=== PATIENT | female | born 1945 | race Caucasian/White ===

== ENCOUNTER → 2017-04-30 | Outpatient (CLI) | payer MEDICARE | END | disposition home or self-care (01) | LOC: GMAJ 15:47 | PROVIDERS: ATTEND Family Medicine | DX: M25.462 Effusion, left knee (principal) ==

== ENCOUNTER → 2017-05-01 | Outpatient (CLI) | payer MEDICARE ==
--- NOTE | 2017-05-01 13:14 | MRI ---
EXAM DESCRIPTION: Knee,Left CLINICAL HISTORY: OTHER TEAR OF UNSPECIFIED MENISCUS COMPARISON: None Available. TECHNIQUE: MRI of the left knee is performed according to our usual protocol with multiplanar multi sequence imaging. FINDINGS: Moderate left knee joint effusion and moderate complex multiseptated popliteal cyst. Assessment of the articular surfaces of the knee joint shows extensive mixed grade 3/4 chondrosis involving all three compartments of the joint. There is a large grade 4 defect in the central aspect of the lateral facet of the patella measuring about 12 mm in diameter. Multifocal smaller areas of full-thickness cartilage loss noted in all three compartments. Significant marginal osteophyte formation. Extensive degenerative tears of medial and lateral menisci both of which appear highly macerated. There is fragmentation of the posterior horn of the lateral meniscus. Cruciate and collateral ligaments are intact. IMPRESSION: Severe degenerative changes of all three compartments of the knee joint with medial and lateral meniscus tears Electronically signed by: Carlos A Velazco MD 05/01/2017 1:13 PM CDT
== END ==
LOC: MRI 07:00
PROVIDERS: ATTEND Family Medicine
DX: S83.204A Other tear of unspecified meniscus, current injury, left knee, initial encounter (principal)

== ENCOUNTER → 2017-05-16 | Outpatient (CLI) | payer MEDICARE ==
--- NOTE | 2017-05-16 10:24 | RAD ---
EXAM DESCRIPTION: Knee,Left Complete CLINICAL HISTORY: 71 years, Female, PAIN IN LEFT KNEE COMPARISON: FINDINGS: Four views were obtained without definite fracture or dislocation. Moderate narrowing medially with spurring. Slight narrowing laterally. Moderate narrowing patellofemoral joint space with spurring. Fluid in the suprapatellar bursa. Small amount of arterial calcification. IMPRESSION: Moderate degenerative changes typically patellofemoral joint space. Probable small joint effusion. No fracture or dislocation Electronically signed by: Christiano Lopez MD 05/16/2017 10:23 AM CDT
--- NOTE | 2017-05-16 10:26 | RAD ---
EXAM DESCRIPTION: Pelvis CLINICAL HISTORY: 71 years, Female, PAIN IN LEFT HIP COMPARISON: FINDINGS: Frontal view the pelvis shows intact pelvic ring. Degenerative narrowing both hips, more on the right. Mild sacroiliac degenerative change, more on the right. Some arterial calcification in the pelvis. IMPRESSION: Mild degenerative change. No fracture or dislocation. Electronically signed by: Christiano Lopez MD 05/16/2017 10:24 AM CDT
== END | disposition home or self-care (01) ==
LOC: RAD 07:26
PROVIDERS: ATTEND Orthopaedic Surgery
DX: M25.562 Pain in left knee (principal); M25.552 Pain in left hip

== ENCOUNTER → 2017-05-30 | Outpatient (CLI) | payer MEDICARE | END | disposition home or self-care (01) | LOC: RESP 10:32 | PROVIDERS: ATTEND Orthopaedic Surgery | DX: Z01.818 Encounter for other preprocedural examination (principal) ==

== ENCOUNTER 2017-06-11 05:47 | Inpatient (IN) | payer MEDICARE ==
--- NOTE | 2017-06-10 10:10 | HP ---
CHIEF COMPLAINT: Left knee pain. HISTORY OF PRESENT ILLNESS: Ms. Larson is a 71-year-old female with a history of knee pain. She has had conservative measures , however, has failed to gain relief. She continues to have pain that causes to have to use an assistive device for ambulation. She denies any trauma related to the onset of that. Because of her ongoing pain and failure of conservative measures, she has requested operative intervention. After discussing the risks, benefits and alternatives to that, the patient has given informed consent. PAST SURGICAL HISTORY: 1. Rotator cuff repair. 2. Herniorrhaphy. 3. Cholecystectomy. 4. Cardiac bypass. 5. Bilateral knee arthroscopy. MEDICATIONS: 1. Lisinopril. 2. Coreg. 3. Diclofenac. 4. Nexium. 5. Levothyroxine. 6. Crestor. 7. Estradiol. ALLERGIES: NONSTEROIDAL ANTI-INFLAMMATORY DRUGS, NAPROSYN, DAYPRO. CODE STATUS: Full code. IMMUNIZATIONS: Up to date. SOCIAL HISTORY: The patient does not drink, smoke or use any illicit drugs. FAMILY HISTORY: None pertinent to today's complaint. REVIEW OF SYSTEMS: Negative except as indicated in the History of Present Illness. PHYSICAL EXAMINATION: VITAL SIGNS: Blood pressure 102/67. Pulse 93. Height 5'4". Weight 157. MENTAL STATUS: The patient is awake, alert, and is able to give a good history and participate in the physical. The patient is oriented to person, place and time. SKIN: Normal tone and turgor. HEENT: Normocephalic, atraumatic. Pupils equal, round and reactive. Mucosal membranes are moist. NECK: Normal range of motion. No thyromegaly, no lymphadenopathy. CHEST: Normal respiratory excursion. CARDIAC: Regular rate and rhythm. No murmurs, rubs or gallops. MUSCULOSKELETAL: Bilateral upper extremities show full active range of motion without pain. She has intact sensation throughout. They are warm and well perfused. She has 5/5 strength. The right lower extremity shows no significant pain with range of motion of either the hip or the knee. Sensation is intact throughout. It is warm and well perfused. The left lower extremity has severe pain with patellar mobilization. She has intact sensation. The hip has no significant pain with range of motion. There is no varus/valgus or anterior/posterior laxity. IMAGING: X-rays show advanced arthritis. ASSESSMENT: 1. Osteoarthritis. PLAN: The plan at this point is for total knee arthroplasty. We have discussed the risks, benefits, and alternatives to that and the patient has given informed consent. [facility][id number] [facility]
[2017-06-11] MEDS ORDERED: LACTATED RINGERS 1,000 ML ONE ×2 (06:03→13:42)
[2017-06-11] MEDS ORDERED: VANCOMYCIN HCL INJ 1,000 MG VIAL IVPB ONE ×3 (06:03→19:28)
[2017-06-11] MEDS ORDERED: ceFAZolin SODIUM 1 GM VIAL ONE ×3 (06:03→07:21)
[2017-06-11] MEDS ORDERED: TRANEXAMIC ACID 1,000 MG/10 ML VIAL ONE ×2 (06:03→06:05)
[2017-06-11] MEDS ORDERED: SODIUM CHL 0.9% 50ML MIN-BAG+ 0 ML IVPB ONE (06:03)
[2017-06-11] MEDS ORDERED: SODIUM CHLORIDE 0.9% 100ML 100 ML IVPB ONE (06:04)
[2017-06-11] MEDS ORDERED: SODIUM CHLORIDE 0.9% 250ML 250 ML ONE ×2 (06:04→19:27)
[2017-06-11] MEDS ORDERED: SODIUM CHL 0.9% 100ML MINI-BAG 100 ML IVPB ONE (06:08)
[2017-06-11] MEDS ORDERED: TEMAZEPAM 15 MG CAP PO PRN (06:55)
[2017-06-11] MEDS ORDERED: PROMETHAZINE HCL INJ 12.5 MG in SODIUM CHLORIDE 0.9% 50ML 50 ML IVPB PRN (06:55)
[2017-06-11] MEDS ORDERED: ACETAMINOPHEN 325 MG TAB PO PRN (06:55)
[2017-06-11] MEDS ORDERED: SODIUM CHLORIDE 0.9% (FLUSH) 10 ML SYG IV PRN (06:55)
[2017-06-11] MEDS ORDERED: ALUMINUM & MAGNESIUM HYDROXIDE 30 ML UD PO PRN (06:55)
[2017-06-11] MEDS ORDERED: TRANEXAMIC ACID INJ 1,000 MG in SODIUM CHLORIDE 0.9% 100ML 100 ML IVPB ONE (06:55)
[2017-06-11] MEDS ORDERED: BENZOCAINE-MENTH LOZ (CEPACOL) 1 EA LOZ MT PRN (06:55)
[2017-06-11] MEDS ORDERED: MORPHINE SULFATE INJ 10 MG/ML VIAL IM PRN (06:55)
[2017-06-11] MEDS ORDERED: ACETAMINOPHEN 500 MG TAB PO PRN (06:55)
[2017-06-11] MEDS ORDERED: NALOXONE HCL INJ 0.4 MG/ML VIAL IV PRN (06:55)
[2017-06-11] MEDS ORDERED: ZOLPIDEM TARTRATE 5 MG TAB PO PRN (06:55)
[2017-06-11] MEDS ORDERED: PROMETHAZINE HCL INJ 25 MG in SODIUM CHLORIDE 0.9% 50ML 50 ML IVPB PRN (06:55)
[2017-06-11] MEDS ORDERED: BISACODYL SUPPOSITORY 10 MG PR PRN (06:55)
[2017-06-11] MEDS ORDERED: ONDANSETRON INJ 4 MG/2 ML VIAL IV PRN (06:55)
[2017-06-11] MEDS ORDERED: MAGNESIUM HYDROXIDE 30 ML UD PO PRN (06:55)
[2017-06-11] MEDS ORDERED: MORPHINE SULFATE INJ 10 MG/ML VIAL IV PRN (06:55)
[2017-06-11] MEDS ORDERED: MORPHINE PCA 1 MG/ML 100ML 1 BAG in PREMIX BAG 1 BAG IVPB SCH (07:00)
[2017-06-11] MEDS ORDERED: BUPIVACAINE 0.25% W/EPI 50 ML VIAL INJ ONE (07:21)
[2017-06-11] MEDS ORDERED: MAGNESIUM OXIDE 400 MG TAB PO SCH (09:00)
[2017-06-11] MEDS ORDERED: TRANEXAMIC ACID 1,000 MG/10 ML VIAL IV ONE (09:02)
[2017-06-11] MEDS ORDERED: MORPHINE SULFATE *EPIDURAL* 0.5 MG/ML VIAL ONE (09:03)
[2017-06-11] MEDS ORDERED: MIDAZOLAM INJ 2 MG/2 ML VIAL ONE (09:04)
[2017-06-11] MEDS ORDERED: fentaNYL CITRATE INJ 50 MCG/ML AMP ONE (09:04)
[2017-06-11] MEDS ORDERED: BUPIVACAINE 0.25% INJ 30 ML VIAL INJ ONE (10:26)
[2017-06-11] MEDS ORDERED: ACETAMINOPHEN IV 1000MG 100 ML ONE (10:38)
[2017-06-11] MEDS: ceFAZolin SODIUM 1 GM VIAL ONE ×2 (11:04→11:55)
[2017-06-11] MEDS: VANCOMYCIN HCL INJ 1,000 MG VIAL IVPB ONE ×2 (11:04→11:55)
[2017-06-11] MEDS ORDERED: MORPHINE PCA 1 MG/ML 100 ML BAG IVPB ONE (11:24)
[2017-06-11] MEDS ORDERED: raNITIdine HCL INJ 25 MG/ML VIAL IV ONE (12:00)
[2017-06-11] MEDS ORDERED: PROPOFOL 200 MG/20 ML VIAL IV ONE (12:00)
[2017-06-11] MEDS ORDERED: METOCLOPRAMIDE HCL INJ 10 MG/2 ML VIAL IV ONE (12:00)
[2017-06-11] MEDS ORDERED: DEXAMETHASONE INJ 10 MG/ML VIAL IV ONE (12:00)
[2017-06-11] MEDS ORDERED: LIDOCAINE 1% 10 ML VIAL INJ ONE (12:00)
[2017-06-11] MEDS ORDERED: ePHEDrine SULF 50 MG/ML IV ONE (12:00)
[2017-06-11] MEDS: IV SET AND CAP CHANGE INJ INJ SCH (14:00)
[2017-06-11] MEDS ORDERED: diphenhydrAMINE HCL 50 MG/ML VIAL IM PRN (14:35)
[2017-06-11] MEDS: diphenhydrAMINE HCL 50 MG/ML VIAL IV PRN (14:44)
[2017-06-11] MEDS ORDERED: CEFAZOLIN SODIUM 2 GRAMS IV 50 ML IVPB ONE ×2 (17:08→19:28)
[2017-06-11] MEDS ORDERED: MAGNESIUM OXIDE 400 MG TAB ONE (17:09)
[2017-06-11] MEDS: DEX 5% W/NACL 0.45% 1000ML 1,000 ML IVS PRN (17:12)
[2017-06-11] MEDS: CEFAZOLIN SODIUM 2 GRAMS IV 2 GM in PREMIX BAG 1 BAG IVPB SCH (17:13)
--- NOTE | 2017-06-11 19:24 | CONS ---
DATE OF CONSULTATION: 06/11/17 SUPERVISING PHYSICIAN: Kb Chaves M.D. CHIEF COMPLAINT: Left knee pain. HISTORY OF PRESENT ILLNESS: This is a 71 year-old female patient with a significant history of left knee pain. She has tried conservative measures and has failed to gain relief. She has continued to have pain that causes her to use assistive devices for ambulation. Because of her ongoing pain and failure of conservative measures, she had requested Dr. James Hurtado, orthopedic surgeon , for surgical intervention with a left total knee arthroplasty. I am seeing her postoperatively. Postoperatively, she is very sleepy but her daughter is at the bedside and she answers all of her medical history questions. PAST MEDICAL HISTORY: 1. Seasonal allergies. 2. Gastroesophageal reflux disease. 3. Hyperlipidemia. 4. Hypertriglyceridemia. 5. Hypertension. 6. Hypothyroidism. 7. Osteoarthritis. 8. Peptic ulcer disease. 9. Coronary artery disease with coronary artery bypass graft in 2013. 10. Diverticulosis. PAST SURGICAL HISTORY: 1. Hernia repair times 2. 2. Arthroscopy to both knees. 3. Coronary artery bypass graft of 5 vessels in 2013. 4. Cholecystectomy. 5. Hysterectomy. 6. Rotator cuff repair to the right shoulder. OUTPATIENT MEDICATIONS: Per the EMR and awaiting verification. ALLERGIES: DAYPRO, NAPROSYN AND MOST NSAIDs EXCEPT CLOFENAC, PLAQUENIL, METHOTREXATE AND PRAVACHOL. SOCIAL HISTORY: She is . She has 3 kids. She still works as an penal officer. She has a past history of cigarette smoking but quit in 2007. She denies any ETOH or illicit drug use. REVIEW OF SYSTEMS: Negative except for History of Present Illness. PHYSICAL EXAMINATION: VITAL SIGNS: She is afebrile, heart rate 73, blood pressure 133/84, respiratory rate 18, O2 sat is 92% on 2 liters nasal cannula. GENERAL: This is a 71 year-old female patient who is lying in her hospital bed. She is very lethargic but she is in no acute distress. HEENT: Normocephalic and atraumatic. Pupils are equal and reactive. Oropharynx is clear. NECK: Supple without mass. CHEST: Clear to auscultation bilaterally. There is equal rise and fall of the chest with inspiration and expiration. HEART: Regular rate and rhythm. ABDOMEN: Soft, nondistended, non-tender. Bowel sounds are positive. EXTREMITIES: No cyanosis or clubbing. Her bilateral pedal pulses are palpable. She has an Iceman in place to her left knee. NEUROLOGIC: She is lethargic. She does open her eyes and mumbles some words, but continues to be very sleepy postoperatively. LABORATORY: All labs and films have been reviewed via the EMR. IMPRESSION: 1. Osteoarthritis of the left knee status post total knee arthroplasty per Dr. James Hurtado, orthopedic surgeon, postoperative day zero. 2. Gastroesophageal reflux disease. 3. Hyperlipidemia. 4. Hypertension. 5. Hypothyroidism. 6. Coronary artery disease. PLAN: We will continue present supportive care. I have restarted her home medications. Orthopedic issues will be per Dr. Hurtado. She will start her physical therapy for strengthening and conditioning tomorrow. I have encouraged good pulmonary hygiene. Otherwise we will continue to monitor the patient closely and followup as needed. Dr. Chaves is the collaborating physician available for consultation. [id number]
[2017-06-11] MEDS ORDERED: hydroCHLOROthiazide 12.5 MG CAP ONE (19:26)
[2017-06-11] MEDS ORDERED: ENOXAPARIN SODIUM 30 MG/0.3 ML SYG SUBCU ONE (19:27)
[2017-06-11] MEDS ORDERED: CARVEDILOL 3.125 MG TAB ONE (19:27)
[2017-06-11] MEDS ORDERED: ESTRADIOL TAB 1 MG PO ONE (19:27)
[2017-06-11] MEDS ORDERED: DOCUSATE CALCIUM 240 MG CAP ONE (19:27)
[2017-06-11] MEDS ORDERED: ATORVASTATIN 10 MG TAB ONE (19:27)
[2017-06-11] MEDS ORDERED: LISINOPRIL 10 MG TAB ONE (19:27)
[2017-06-11] MEDS: VANCOMYCIN HCL INJ 1,000 MG in SODIUM CHLORIDE 0.9% 250ML 250 ML IVPB SCH (19:54)
[2017-06-11] MEDS: diphenhydrAMINE HCL 25 MG CAP PO PRN (19:55)
[2017-06-11] MEDS: CARVEDILOL 3.125 MG TAB PO SCH (20:02)
[2017-06-11] MEDS: ATORVASTATIN 10 MG TAB PO SCH (20:02)
[2017-06-11] MEDS: ESTRADIOL TAB 1 MG PO SCH (20:02)
[2017-06-11] MEDS: DOCUSATE CALCIUM 240 MG CAP PO SCH (20:02)
[2017-06-11] MEDS: traMADol HCL 50 MG TAB PO PRN (23:26)
[2017-06-12] MEDS: ENOXAPARIN SODIUM 30 MG/0.3 ML SYG SUBCU SCH ×2 (00:02→12:58)
[2017-06-12] MEDS: CEFAZOLIN SODIUM 2 GRAMS IV 2 GM in PREMIX BAG 1 BAG IVPB SCH ×2 (02:03→11:01)
[2017-06-12] MEDS: CYCLOBENZAPRINE HCL 10 MG TAB PO PRN ×2 (04:22→20:24)
[2017-06-12] MEDS: LISINOPRIL 10 MG TAB PO SCH (06:04)
[2017-06-12] MEDS: LEVOTHYROXINE SODIUM 0.1 MG TAB PO SCH (06:04)
[2017-06-12] MEDS: hydroCHLOROthiazide 12.5 MG CAP PO SCH (06:04)
[2017-06-12] MEDS: diphenhydrAMINE HCL 25 MG CAP PO PRN (06:37)
[2017-06-12] MEDS ORDERED: NON-FORMULARY MEDICATION 1 EA MIS (Lisinopril & Hydrochlorothiazi [Lisinopril/Hctz 20-12.5 PO SCH (07:00)
[2017-06-12] MEDS ORDERED: SODIUM CHLORIDE 0.9% 250ML 250 ML ONE (08:02)
[2017-06-12] MEDS ORDERED: VANCOMYCIN HCL INJ 1,000 MG VIAL IVPB ONE (08:03)
[2017-06-12] MEDS: VANCOMYCIN HCL INJ 1,000 MG in SODIUM CHLORIDE 0.9% 250ML 250 ML IVPB SCH (08:30)
[2017-06-12] MEDS: FLUTICASONE PROP 0.05% NASAL 16 GM BTTL BNAS SCH (08:31)
[2017-06-12] MEDS: CARVEDILOL 3.125 MG TAB PO SCH ×2 (08:31→20:35)
[2017-06-12] MEDS: MAGNESIUM OXIDE 400 MG TAB PO SCH (08:31)
--- NOTE | 2017-06-12 08:46 | OP ---
DATE OF PROCEDURE: 06/11/17 PREOPERATIVE DIAGNOSIS: 1. Osteoarthritis of the knee. POSTOPERATIVE DIAGNOSIS: 1. Osteoarthritis of the knee. PROCEDURE: 1. Total knee arthroplasty. SURGEON: James Hurtado MD. BENEFITS CONSULTANT: Fede Jon CST, [facility]. ANESTHESIA: General. COMPLICATIONS: None. FINDINGS: Advanced arthritis of the knee. INDICATION: Ms. Larson has a long history of knee pain. She has been treated and although she had not ever had positive markers for rheumatoid arthritis, she had also been attempted to be treated for that. She has failed conservative measures inclusive of injections, anti-inflammatories and use of an assistive device for ambulation. Because of the ongoing pain, she has requested operative intervention. After discussing the risks, benefits and alternatives to that, the patient has given informed consent for total knee arthroplasty. PROCEDURE: The patient was brought to the Operating Room and placed in supine position. General anesthesia was induced and the patient's leg was sterilely prepped and draped. Following prepping and draping, the distal femur was exposed and using an intramedullary guide, the distal femoral cut was made. The appropriate sized cutting block was measured, pinned into place, and the anterior, posterior, and chamfer cuts were made. The ACL was transected and the tibia was subluxed. Both the medial and lateral menisci were removed. An intramedullary guide was used to make the proximal tibial cut. The appropriate sized base plate was placed and a trial polyethylene was placed. The trial femur was placed, the knee was reduced, and the knee was taken through a range of motion. The knee was stable in anterior, posterior, varus and valgus stress. The patella tracked anatomically without evidence of subluxation or dislocation. After trialing, the trial components were removed and the bony surfaces were thoroughly irrigated with saline. Following irrigation, the surfaces were dried and the final components were cemented into place. The excess cement was removed and the remaining cement was allowed to cure. The knee was again taken through a range of motion to confirm stability. The wound was then irrigated with saline and closure was performed using PDS to approximate the arthrotomy followed by closure of the subcutaneous tissues with a combination of running and interrupted Monocryl sutures. Sterile dressing was placed. The patient was awoken from anesthesia and taken to Recovery. POSTOPERATIVE INSTRUCTIONS: The patient will be weight-bearing as tolerated on postoperative day 1. COMPONENTS: [place] knee, size 4 femur, size 4 tibia, 11 mm insert. [facility][id number]
[2017-06-12] MEDS ORDERED: CEFAZOLIN SODIUM 2 GRAMS IV 50 ML IVPB ONE (10:58)
--- NOTE | 2017-06-12 11:05 | PN ---
SUPERVISING PHYSICIAN: Kb Chaves MD DATE: 06/12/17 SUBJECTIVE: The patient is sitting on the side of her bed. She is about to start her physical therapy this morning. She was very sleepy last night but reported she had a good night and other than some itching, she has no complaints of shortness of breath, nausea or vomiting, diarrhea, constipation. OBJECTIVE: VITAL SIGNS: She is afebrile. Heart rate is 80, blood pressure 119/75, respiratory rate 18. 02 saturation is 94% on two liters nasal cannula. RESPIRATORY: Clear to auscultation bilaterally. CARDIAC: Regular rate and rhythm. ABDOMEN: Soft, nondistended, non-tender. Bowel sounds are positive. EXTREMITIES: She has an Iceman in place to her left knee. Her bilateral pedal pulses are palpable at +2. NEUROLOGICAL: Awake, alert, and oriented x3. LABORATORY: Her hemoglobin is 12.2, hematocrit 36.7 All other labs and films have been reviewed via the EMR. ASSESSMENT: 1. Osteoarthritis of the left knee status post total knee arthroplasty per Dr. James Hurtado, orthopedic surgeon, postoperative day #1. . 2. Gastroesophageal reflux disease. 3. Hyperlipidemia. 4. Hypertension. 5. Hypothyroidism. 6. Coronary artery disease. PLAN: We will continue present supportive care. Her strengthening and conditioning will be continued through physical therapy. Orthopedic issues will be per Dr. Hurtado. I have encouraged good pulmonary hygiene. At this point, we anticipate that after discharge, per Dr. Hurtado, we will probably need about 10 days of Swing Bed but that will be reevaluated in the next day or two. Otherwise, we will continue to monitor the patient closely and followup as needed. Dr. Chaves is the collaborating physician available for comparison. #[id number] [facility]
--- NOTE | 2017-06-12 14:16 | RAD ---
EXAM DESCRIPTION: Knee,Left 2 or More Views CLINICAL HISTORY: 71 yearsFemale, TKA COMPARISON: 05/16/2017 IMPRESSION: There are operative changes of a left total knee arthroplasty. Components appear in excellent alignment, with no complicating features. There is postoperative gas in the soft tissues. Electronically signed by: Con Dawn MD 06/12/2017 2:15 PM CDT
[2017-06-12] MEDS: DEX 5% W/NACL 0.45% 1000ML 1,000 ML IVS PRN (20:24)
[2017-06-12] MEDS: traMADol HCL 50 MG TAB PO PRN (20:24)
[2017-06-12] MEDS: DOCUSATE CALCIUM 240 MG CAP PO SCH (20:35)
[2017-06-12] MEDS: ATORVASTATIN 10 MG TAB PO SCH (20:35)
[2017-06-12] MEDS: ESTRADIOL TAB 1 MG PO SCH (20:35)
[2017-06-13] MEDS: ENOXAPARIN SODIUM 30 MG/0.3 ML SYG SUBCU SCH ×2 (00:30→13:19)
[2017-06-13] MEDS: traMADol HCL 50 MG TAB PO PRN (06:22)
[2017-06-13] MEDS: CYCLOBENZAPRINE HCL 10 MG TAB PO PRN (06:22)
[2017-06-13] MEDS: LEVOTHYROXINE SODIUM 0.1 MG TAB PO SCH (06:22)
[2017-06-13] MEDS: hydroCHLOROthiazide 12.5 MG CAP PO SCH (06:46)
[2017-06-13] MEDS: LISINOPRIL 10 MG TAB PO SCH (06:46)
--- NOTE | 2017-06-13 07:57 | PN ---
DATE: 06/12/17 SUBJECTIVE: Ms. Larson is doing well. She has minimal pain and is up to a seated position with the knee bent. OBJECTIVE: Afebrile. Vital signs stable. Dressing is clean, dry and intact. ASSESSMENT: Status post total knee arthroplasty. PLAN: She will continue with her weight-bearing as tolerated activities as well as her CPM. [facility][id number]
--- NOTE | 2017-06-13 08:03 | PN ---
DATE: 06/13/17 SUBJECTIVE: Ms. Larson is doing well right now. She has no significant pain. She was up walking yesterday. OBJECTIVE: Afebrile. Vital signs stable. Wound is clean. There are no signs or symptoms of infection. ASSESSMENT: Status post total knee arthroplasty. PLAN: She will continue her weight-bearing status. We will progress her as tolerated with her CPM as well. [facility][id number] [facility]
[2017-06-13] MEDS: CARVEDILOL 3.125 MG TAB PO SCH ×2 (08:40→20:30)
[2017-06-13] MEDS: MAGNESIUM OXIDE 400 MG TAB PO SCH (08:40)
[2017-06-13] MEDS: HYDROcodone 5MG/APAP 325MG 1 EA TAB PO PRN ×4 (08:40→20:30)
[2017-06-13] MEDS: SODIUM CHLORIDE 0.9% (FLUSH) 10 ML SYG IV SCH ×2 (08:40→20:30)
[2017-06-13] MEDS: FLUTICASONE PROP 0.05% NASAL 16 GM BTTL BNAS SCH (08:40)
--- NOTE | 2017-06-13 15:00 | PN ---
SUPERVISING PHYSICIAN: Kb Chaves MD DATE: 06/13/17 SUBJECTIVE: The patient is sitting in bed just having finished at the bedside commode. She notes she feels like she needs to have a bowel movement, but has not yet had any success. She denies any abdominal cramping, nausea or vomiting. OBJECTIVE: VITAL SIGNS: She remains afebrile with T-max of 98.5. Pulse 81. Blood pressure 127/77. Respiratory rate 17. Saturation 95% on room air. I&Os show positive balance 1161 with 3286 in, 2125 out. CHEST: Lungs clear to auscultation bilaterally. HEART: Regular rate and rhythm. ABDOMEN: Obese, but soft and nontender. Positive bowel sounds. EXTREMITIES: No cyanosis, clubbing or edema. Left knee has a dressing in place which is clean and dry. There are no signs of infection. No erythema, no swelling. Distal pulses strong. Capillary refill brisk. NEUROLOGIC: Alert and oriented times three. LABORATORY: Postoperative evaluation on 06/12 was hemoglobin 12.2, hematocrit 36.7. ASSESSMENT: 1. Osteoarthritis of the left knee status post total knee arthroplasty per Dr. James Hurtado, orthopedic surgeon, postoperative day #2. 2. Gastroesophageal reflux disease. 3. Hyperlipidemia. 4. Hypertension. 5. Hypothyroidism. 6. Coronary artery disease. PLAN: We will continue to follow the patient has she progresses through physical therapy efforts. We will encourage good pulmonary hygiene. We will anticipate discharge in the morning to Swing Bed for 10 days as the patient lives alone and has no assistance. Until discharge, we will continue to monitor the patient closely and treat appropriately. #[id number] [facility]
[2017-06-13] MEDS: ESTRADIOL TAB 1 MG PO SCH (20:30)
[2017-06-13] MEDS: ATORVASTATIN 10 MG TAB PO SCH (20:30)
[2017-06-13] MEDS: DOCUSATE CALCIUM 240 MG CAP PO SCH (20:30)
[2017-06-13] MEDS: diphenhydrAMINE HCL 50 MG/ML VIAL IV PRN (20:45)
[2017-06-14] MEDS: ENOXAPARIN SODIUM 30 MG/0.3 ML SYG SUBCU SCH (01:01)
[2017-06-14] MEDS: HYDROcodone 5MG/APAP 325MG 1 EA TAB PO PRN ×3 (04:05→11:10)
[2017-06-14] MEDS: hydroCHLOROthiazide 12.5 MG CAP PO SCH (06:37)
[2017-06-14] MEDS: LISINOPRIL 10 MG TAB PO SCH (06:37)
[2017-06-14] MEDS: IV SET AND CAP CHANGE INJ INJ SCH (06:37)
[2017-06-14] MEDS: LEVOTHYROXINE SODIUM 0.1 MG TAB PO SCH (06:37)
[2017-06-14] MEDS: MAGNESIUM OXIDE 400 MG TAB PO SCH (08:17)
[2017-06-14] MEDS: CARVEDILOL 3.125 MG TAB PO SCH (08:17)
[2017-06-14] MEDS: SODIUM CHLORIDE 0.9% (FLUSH) 10 ML SYG IV SCH (08:20)
[2017-06-14] MEDS: FLUTICASONE PROP 0.05% NASAL 16 GM BTTL BNAS SCH (08:25)
[2017-06-14] MEDS ORDERED: INFLUENZA VIRUS VACC (ADULT) 0.5 ML SYG IM ONE ×2 (09:27→11:05)
[2017-06-14 10:22] VITALS: BP 135/83; TEMP 97.2
[2017-06-14] MEDS: CYCLOBENZAPRINE HCL 10 MG TAB PO PRN (11:10)
[2017-06-14 14:23] VITALS: O2SAT 95
[2017-06-14] MEDS ORDERED: MAGNESIUM HYDROXIDE 30 ML UD PO ONE (21:00)
[2017-06-14] MEDS ORDERED: BISACODYL SUPPOSITORY 10 MG PR ONE (21:00)
--- NOTE | 2017-06-15 12:14 | DS ---
SUPERVISING PHYSICIAN: Kb Chaves MD DISCHARGE DIAGNOSIS: 1. Osteoarthritis of the left knee status post total left knee arthroplasty performed by Dr. James Hurtado, orthopedic surgeon, postoperative day 2 admitted to Swing Bed for continued physical therapy efforts. 2. Gastroesophageal reflux disease. 3. Hyperlipidemia. 4. Hypertension. 5. Hypothyroidism. 6. Coronary artery disease. HISTORY OF PRESENT ILLNESS: Ms. Larson is a 71 year-old female patient with a significant history of left knee pain. She has tried multiple efforts at conservative treatment measures and failed to gain any relief. She has continued to have pain that causes her to utilize assistive devices for ambulation. Because of her ongoing pain and failure of conservative measures, she requested Dr. James Hurtado, orthopedic surgeon, to perform a left total knee arthroplasty. The patient was seen and admitted postoperative and followed through her acute care stay. The patient progressed well through her physical therapy efforts but does live alone and is in need of continued ongoing physical therapy. Therefore.she is being admitted Swing Bed. LABORATORY: Postoperative hemoglobin and hematocrit of 12.2 and 36.7, PROCEDURES: Total knee arthroplasty, left knee, performed by Dr. James Hurtado. Please see Dr. Hurtado's notes for full details. HOSPITAL COURSE: Ms. Larson was admitted on 06/11/17 for an elective procedure for a left total knee arthroplasty performed by Dr. James Hurtado. The patient had no complications at surgery. She was seen immediately in the postoperative state and followed through while in acute care. She progressed fairly well through her physical therapy efforts but is in need of additional days of physical therapy, however, she does live alone and will benefit from additional stays at Swing Bed for safety and improved physical therapy outcomes. PLAN: The patient is discharged from Acute Care on 06/14/17 and admitted to Swing Bed on 06/14/17 for ongoing physical therapy efforts. She was to continue with anticoagulation therapy with Xarelto for a total of 8 days as per protocol. All other medications are resumed as previously for hospitalization. Diet was regular as tolerated. Activities as per physical therapy. CONDITION ON DISCHARGE: Stable and improved. #[id number] [facility]
== END 2017-06-14 12:50 | disposition swing bed (61) | DRG 470 ==
LOC: AMB 05:47 → MS 14:00
PROVIDERS: ADMIT Orthopaedic Surgery; ATTEND Nurse Practitioner Family
PROC: 0SRD0J9 Replacement of Left Knee Joint with Synthetic Substitute, Cemented, Open Approach (ICD-10-PCS; principal; 2017-06-11 10:11)
DX: M17.12 Unilateral primary osteoarthritis, left knee (principal); K21.9 Gastro-esophageal reflux disease without esophagitis; I10 Essential (primary) hypertension; E03.9 Hypothyroidism, unspecified; I25.10 Atherosclerotic heart disease of native coronary artery without angina pectoris; J30.2 Other seasonal allergic rhinitis; E78.2 Mixed hyperlipidemia; Z88.6 Allergy status to analgesic agent; Z95.1 Presence of aortocoronary bypass graft; Z87.891 Personal history of nicotine dependence; Z79.899 Other long term (current) drug therapy

== ENCOUNTER 2017-06-14 13:13 | Inpatient (IN) | payer MEDICARE ==
[2017-06-14] MEDS ORDERED: SODIUM PHOS/BIPHOS ENEMA ADULT 133 ML BTTL PR PRN (13:14)
[2017-06-14] MEDS ORDERED: ACETAMINOPHEN 500 MG TAB PO PRN (13:14)
--- NOTE | 2017-06-14 13:14 | HP ---
SUPERVISING PHYSICIAN: Kb Chaves M.D. REASON FOR SWING BED ADMISSION: Continued physical therapy status post left knee total arthroplasty. HISTORY OF PRESENT ILLNESS: Ms. Larson is a 71 year-old female patient with a significant history of left knee pain. She has attempted multiple conservative treatment measures in the outpatient setting but failed to gain any significant relief. She has had continued pain that has been causing her to utilize assistive devices for ambulation. Because of her ongoing pain and failure of conservative measures, she requested Dr. James Hurtado , orthopedic surgeon, for surgical intervention with a left total knee arthroplasty. The patient had surgery on 06/11/17 and was followed postoperatively up until discharge. The patient has a history of living by herself and it was felt that Swing Bed admission was warranted to ensure the patient had adequate time to increase strength and she has no assistance at home , to ensure that she was safe once discharged. The patient was discharged from Acute Care and admitted to Swing Bed for ongoing physical therapy. PAST MEDICAL HISTORY: 1. Seasonal allergies. 2. Gastroesophageal reflux disease. 3. Hyperlipidemia. 4. Hypertriglyceridemia. 5. Hypertension. 6. Hypothyroidism. 7. Osteoarthritis. 8. Peptic ulcer disease. 9. Coronary artery disease with coronary artery bypass graft in 2013. 10. Diverticulosis. PAST SURGICAL HISTORY: 1. Recent left knee total arthroplasty as noted above. 2. Hernia repair times 2. 3. Arthroscopy of both knees. 4. Coronary artery bypass graft of 5 vessels in 2013. 5. Cholecystectomy. 6. Hysterectomy. 7. Rotator cuff repair of the right shoulder. OUTPATIENT MEDICATIONS: 1. Coreg 3.125 mg b.i.d. 2. Lipitor 10 mg at bedtime. 3. Flexeril 10 mg every 8 hours as needed at bedtime. 4. Co Q-10 100 mg every day. 5. [place] 5/325 one every 4 hours as needed for pain. 6. Nasal spray 50 mcg daily both nostrils. 7. Estrace 0.5 mg at bedtime. 8. Diclofenac sodium direct release 50 mg twice daily. 9. Lisinopril Hydrochlorothiazide 20/12.5 mg 1/2 tablet twice daily. 10. Krill oil 1 capsule at bedtime. 11. Lovenox 100 mcg daily at 7:00 in the morning. 12. Xarelto 10 mg p.o. daily for a total of 8 days. ALLERGIES: HYDROXYCHLOROQUINE, METHOTREXATE, NAPROSYN, NSAIDs, PRAVASTATIN. FAMILY HISTORY: Unremarkable. SOCIAL HISTORY: The patient is . She still works as an booking police officer. She has a history of smoking cigarettes but quit in 2007. She denies any illicit drug or alcohol usage. REVIEW OF SYSTEMS: Negative except as per History of Present Illness. PHYSICAL EXAMINATION: VITAL SIGNS: Temperature 97.1, pulse 73, blood pressure 124/80, respirations 20 , satting 94% on room air. Admission weight is 90.7 kg. GENERAL: The patient is resting comfortably. Appears to be in no acute distress. She has good pain control. She remains afebrile. She is alert and oriented times three. HEENT: Tympanic membranes are clear bilaterally. Oropharynx is pink and moist without any lesions. NECK: Supple, non-tender with full range of motion. CHEST: Lungs were clear to auscultation bilaterally without an rhonchi, wheezing or rales. CARDIOVASCULAR: Regular rate and rhythm without appreciable murmurs, gallops, or rubs. ABDOMEN: Soft, non-tender. Positive bowel sounds. EXTREMITIES: There is a dressing in place overlying the left knee which is clean and dry. Pulses distally are strong, capillary refill is brisk. NEUROLOGIC: She is alert and oriented times three. LABORATORY: No labs are pending at time of admission. RADIOLOGY: No radiographic studies are pending at time of admission. ASSESSMENT: 1. Osteoarthritis of the left knee status post total left knee arthroplasty performed by Dr. James Hurtado, orthopedic surgeon, on 06/11/17. Postoperative day 3. The patient require ongoing Swing Bed admission for continued physical therapy. 2. Gastroesophageal reflux disease. 3. Hyperlipidemia. 4. Hypertension. 5. Hypothyroidism. 6. Coronary artery disease. PLAN: The patient will be admitted to Swing Bed. Will continue her physical therapy and follow her closely. She will be resumed on her home medications. Will start on DVT prophylaxis as per protocol. Will anticipate length of stay to be at least 3 to 12 days. Until discharge, will continue to monitor and treat appropriately. #[id number] [facility]
--- NOTE | 2017-06-14 13:19 | PCM.CORE ---
Physician DVT/VTE - Prophylaxis Currently: Patient already on anticoagulation therapy - xarelto - Nurse DVT Assessment & Total Each Risk Factor Represents 5 Points: Elective Arthtroplasty Each Risk Factor Represents 2 Points: Age 60-74, Major Surgery >45 minutes DVT Assessment Score: 9 - 5 or more Very High Risk Treatments: Early Ambulation *, Sequential Compression Device
[2017-06-14] MEDS: HYDROcodone 5MG/APAP 325MG 1 EA TAB PO PRN ×2 (14:57→20:19)
[2017-06-14] MEDS ORDERED: ESTRADIOL TAB 1 MG PO ONE (19:29)
[2017-06-14] MEDS ORDERED: LISINOPRIL 10 MG TAB ONE (19:29)
[2017-06-14] MEDS ORDERED: hydroCHLOROthiazide 25 MG TAB ONE (19:30)
[2017-06-14] MEDS: CYCLOBENZAPRINE HCL 10 MG TAB PO PRN (20:19)
[2017-06-14] MEDS: CARVEDILOL 3.125 MG TAB PO SCH (20:41)
[2017-06-14] MEDS: ATORVASTATIN 10 MG TAB PO SCH (20:42)
[2017-06-14] MEDS ORDERED: KRILL OIL PO SCH (21:00)
[2017-06-14] MEDS ORDERED: NON-FORMULARY MEDICATION 1 EA MIS (Lisinopril & Hydrochlorothiazi [Lisinopril/Hctz 20-12.5 PO SCH (21:00)
[2017-06-14] MEDS ORDERED: ESTRADIOL 0.5 MG PO SCH (21:00)
[2017-06-14] MEDS: DICLOFENAC SODIUM 50 MG PO SCH (21:17)
[2017-06-15] MEDS: HYDROcodone 5MG/APAP 325MG 1 EA TAB PO PRN ×6 (01:03→19:59)
[2017-06-15] MEDS: LEVOTHYROXINE SODIUM 0.1 MG TAB PO SCH (06:39)
[2017-06-15] MEDS: COENZYME Q10 100 MG PO SCH (06:39)
[2017-06-15] MEDS: DOCUSATE SODIUM 100 MG CAP PO SCH (09:35)
[2017-06-15] MEDS: CYCLOBENZAPRINE HCL 10 MG TAB PO PRN ×2 (09:35→19:59)
[2017-06-15] MEDS: LISINOPRIL 10 MG TAB PO SCH ×2 (09:35→20:02)
[2017-06-15] MEDS: hydroCHLOROthiazide 12.5 MG CAP PO SCH (09:35)
[2017-06-15] MEDS: FLUTICASONE PROP 0.05% NASAL 16 GM BTTL BNAS SCH (09:36)
[2017-06-15] MEDS: RIVAROXABAN 10 MG TAB PO SCH (09:36)
[2017-06-15] MEDS: CARVEDILOL 3.125 MG TAB PO SCH ×2 (09:36→20:03)
[2017-06-15] MEDS: DICLOFENAC SODIUM 50 MG PO SCH ×2 (09:47→20:03)
--- NOTE | 2017-06-15 12:48 | PN ---
DATE: 06/14/17 SUBJECTIVE: Ms. Larson subjectively is doing well, however, she is having some muscle spasms. OBJECTIVE: She is afebrile. Vital signs are stable. Wound is clean. There are no signs or symptoms of infection. ASSESSMENT: 1. Status post total knee arthroplasty. PLAN: The plan is to continue on with weightbearing as tolerated. We are going to try some Flexeril on her and see if we can get her muscle spasms under control. We have encouraged her to do some stretching to the degree that she can. #[id number] [facility]
--- NOTE | 2017-06-15 12:57 | PN ---
DATE: 06/15/17 SUBJECTIVE: Ms. Larson has improved today and not having the spasms that she was having yesterday at this time. She does state that Tylenol #4 helps better than the Foley when she is having pain. OBJECTIVE: She is afebrile. Vital signs are stable. Wound is clean. There are no signs or symptoms of infection. ASSESSMENT: 1. Status post total knee arthroplasty. PLAN: The plan at this point is for her to continue on with her physical therapy. We are going to change her over to Tylenol #3 as we do not carry Tylenol #4. Will continue the CPM and increase as tolerated. [facility][id number] [facility]
[2017-06-15] MEDS ORDERED: SUCRALFATE 1 GM/10 ML 1 GM UD PO SCH (16:30)
[2017-06-15] MEDS ORDERED: FISH OIL 1,200 MG CAP ONE (19:52)
[2017-06-15] MEDS ORDERED: ESTRADIOL TAB 1 MG PO ONE (19:52)
[2017-06-15] MEDS: FISH OIL 1,200 MG CAP PO SCH (20:02)
[2017-06-15] MEDS: ESTRADIOL TAB 1 MG PO SCH (20:02)
[2017-06-15] MEDS: ATORVASTATIN 10 MG TAB PO SCH (20:03)
[2017-06-16] MEDS: HYDROcodone 5MG/APAP 325MG 1 EA TAB PO PRN ×4 (03:29→19:31)
[2017-06-16] MEDS: COENZYME Q10 100 MG PO SCH (06:09)
[2017-06-16] MEDS: LEVOTHYROXINE SODIUM 0.1 MG TAB PO SCH (06:45)
[2017-06-16] MEDS: DICLOFENAC SODIUM 50 MG PO SCH ×2 (09:16→21:03)
[2017-06-16] MEDS: LISINOPRIL 10 MG TAB PO SCH ×2 (09:17→20:49)
[2017-06-16] MEDS: CARVEDILOL 3.125 MG TAB PO SCH ×2 (09:17→20:50)
[2017-06-16] MEDS: hydroCHLOROthiazide 12.5 MG CAP PO SCH (09:17)
[2017-06-16] MEDS: FLUTICASONE PROP 0.05% NASAL 16 GM BTTL BNAS SCH (09:17)
[2017-06-16] MEDS: RIVAROXABAN 10 MG TAB PO SCH (09:17)
[2017-06-16] MEDS: DOCUSATE SODIUM 100 MG CAP PO SCH (09:17)
[2017-06-16] MEDS: CYCLOBENZAPRINE HCL 10 MG TAB PO PRN (19:31)
[2017-06-16] MEDS: FISH OIL 1,200 MG CAP PO SCH (20:50)
[2017-06-16] MEDS: ESTRADIOL TAB 1 MG PO SCH (20:50)
[2017-06-16] MEDS: MAGNESIUM HYDROXIDE 30 ML UD PO PRN (20:52)
[2017-06-16] MEDS: ATORVASTATIN 10 MG TAB PO SCH (21:28)
[2017-06-17] MEDS: HYDROcodone 5MG/APAP 325MG 1 EA TAB PO PRN ×3 (00:05→08:55)
[2017-06-17] MEDS: CYCLOBENZAPRINE HCL 10 MG TAB PO PRN (03:37)
[2017-06-17] MEDS: LEVOTHYROXINE SODIUM 0.1 MG TAB PO SCH (06:33)
[2017-06-17] MEDS: COENZYME Q10 100 MG PO SCH (06:36)
--- NOTE | 2017-06-17 07:39 | PN ---
DATE: 06/17/17 SUBJECTIVE: Ms. Larson is doing well and has good pain control right now. OBJECTIVE: Afebrile. Vital signs stable. Wound is clean. There are no signs or symptoms of infection. ASSESSMENT: Status post total knee arthroplasty. PLAN: At this point, she will continue with physical therapy. We are going to continue to progress her CPM as tolerated. [facility][id number] [facility]
[2017-06-17] MEDS: hydroCHLOROthiazide 12.5 MG CAP PO SCH (08:46)
[2017-06-17] MEDS: RIVAROXABAN 10 MG TAB PO SCH (08:46)
[2017-06-17] MEDS: CARVEDILOL 3.125 MG TAB PO SCH ×2 (08:46→20:56)
[2017-06-17] MEDS: LISINOPRIL 10 MG TAB PO SCH ×2 (08:46→20:56)
[2017-06-17] MEDS: DOCUSATE SODIUM 100 MG CAP PO SCH (08:46)
[2017-06-17] MEDS: FLUTICASONE PROP 0.05% NASAL 16 GM BTTL BNAS SCH (08:46)
[2017-06-17] MEDS: DICLOFENAC SODIUM 50 MG PO SCH ×2 (08:47→20:57)
[2017-06-17] MEDS: HYDROcodone 10MG/APAP 325MG 1 EA TAB PO PRN ×3 (13:01→20:57)
[2017-06-17] MEDS: TEMAZEPAM 15 MG CAP PO PRN (20:56)
[2017-06-17] MEDS: ATORVASTATIN 10 MG TAB PO SCH (20:56)
[2017-06-17] MEDS: ESTRADIOL TAB 1 MG PO SCH (20:57)
[2017-06-17] MEDS: FISH OIL 1,200 MG CAP PO SCH (20:57)
[2017-06-18] MEDS: CYCLOBENZAPRINE HCL 10 MG TAB PO PRN (06:03)
[2017-06-18] MEDS: HYDROcodone 10MG/APAP 325MG 1 EA TAB PO PRN ×4 (06:03→20:50)
[2017-06-18] MEDS: LEVOTHYROXINE SODIUM 0.1 MG TAB PO SCH (06:32)
[2017-06-18] MEDS: COENZYME Q10 100 MG PO SCH (06:32)
[2017-06-18] MEDS: RIVAROXABAN 10 MG TAB PO SCH (08:52)
[2017-06-18] MEDS: LISINOPRIL 10 MG TAB PO SCH ×2 (08:52→20:49)
[2017-06-18] MEDS: DICLOFENAC SODIUM 50 MG PO SCH (08:52)
[2017-06-18] MEDS: hydroCHLOROthiazide 12.5 MG CAP PO SCH (08:53)
[2017-06-18] MEDS: FLUTICASONE PROP 0.05% NASAL 16 GM BTTL BNAS SCH (08:53)
[2017-06-18] MEDS: CARVEDILOL 3.125 MG TAB PO SCH ×2 (08:53→20:49)
[2017-06-18] MEDS: DOCUSATE SODIUM 100 MG CAP PO SCH (08:53)
[2017-06-18] MEDS: ESTRADIOL TAB 1 MG PO SCH (20:49)
[2017-06-18] MEDS: ATORVASTATIN 10 MG TAB PO SCH (20:49)
[2017-06-18] MEDS: TEMAZEPAM 15 MG CAP PO PRN (20:50)
[2017-06-19] MEDS: CYCLOBENZAPRINE HCL 10 MG TAB PO PRN ×2 (06:01→14:30)
[2017-06-19] MEDS: HYDROcodone 10MG/APAP 325MG 1 EA TAB PO PRN ×3 (06:01→21:26)
[2017-06-19] MEDS: COENZYME Q10 100 MG PO SCH (06:50)
[2017-06-19] MEDS: LEVOTHYROXINE SODIUM 0.1 MG TAB PO SCH (06:50)
--- NOTE | 2017-06-19 08:30 | PN ---
DATE: 06/18/17 SUBJECTIVE: Ms. Larson is doing well and she has no complaints. OBJECTIVE: Wound is clean. There are no signs or symptoms of infection. ASSESSMENT: Status post total knee arthroplasty. PLAN: She will continue with therapy. She will be discharged when she meets all goals. [facility][id number] [facility]
[2017-06-19] MEDS: FLUTICASONE PROP 0.05% NASAL 16 GM BTTL BNAS SCH (08:34)
[2017-06-19] MEDS: hydroCHLOROthiazide 12.5 MG CAP PO SCH (08:35)
[2017-06-19] MEDS: CARVEDILOL 3.125 MG TAB PO SCH ×2 (08:35→21:24)
[2017-06-19] MEDS: RIVAROXABAN 10 MG TAB PO SCH (08:35)
[2017-06-19] MEDS: LISINOPRIL 10 MG TAB PO SCH ×2 (08:35→21:24)
[2017-06-19] MEDS: DOCUSATE SODIUM 100 MG CAP PO SCH (09:41)
[2017-06-19] MEDS: DICLOFENAC SODIUM 50 MG PO SCH ×3 (09:57→21:24)
[2017-06-19] MEDS: FISH OIL 1,200 MG CAP PO SCH ×2 (21:23)
[2017-06-19] MEDS: ESTRADIOL TAB 1 MG PO SCH (21:23)
[2017-06-19] MEDS: ATORVASTATIN 10 MG TAB PO SCH (21:24)
[2017-06-19] MEDS: TEMAZEPAM 15 MG CAP PO PRN (21:26)
[2017-06-20] MEDS: LEVOTHYROXINE SODIUM 0.1 MG TAB PO SCH (06:36)
[2017-06-20] MEDS: COENZYME Q10 100 MG PO SCH (06:36)
[2017-06-20] MEDS: CYCLOBENZAPRINE HCL 10 MG TAB PO PRN (08:20)
[2017-06-20] MEDS: HYDROcodone 10MG/APAP 325MG 1 EA TAB PO PRN ×3 (08:20→20:06)
--- NOTE | 2017-06-20 09:21 | PN ---
DATE: 06/20/17 SUBJECTIVE: Ms. Larson is doing well today and has minimal discomfort. OBJECTIVE: Her wounds are clean. There are no signs or symptoms of infection. ASSESSMENT: Status post total knee arthroplasty. PLAN: At this point, she is slated for discharge in a couple of days. We will continue to perform physical therapy during the remainder of her time here. #[id number] [facility]
[2017-06-20] MEDS: FLUTICASONE PROP 0.05% NASAL 16 GM BTTL BNAS SCH (09:43)
[2017-06-20] MEDS: hydroCHLOROthiazide 12.5 MG CAP PO SCH (09:44)
[2017-06-20] MEDS: RIVAROXABAN 10 MG TAB PO SCH (09:44)
[2017-06-20] MEDS: LISINOPRIL 10 MG TAB PO SCH ×2 (09:44→21:25)
[2017-06-20] MEDS: CARVEDILOL 3.125 MG TAB PO SCH ×2 (09:44→21:25)
[2017-06-20] MEDS: DICLOFENAC SODIUM 50 MG PO SCH ×2 (09:45→21:25)
[2017-06-20] MEDS: DOCUSATE SODIUM 100 MG CAP PO SCH (09:45)
--- NOTE | 2017-06-20 10:36 | PN ---
DATE: 06-19-17 SUBJECTIVE: The patient is lying in bed and seems to be tolerating quite well her continued rehabilitation. Her appetite is good. No shortness of breath and she is anticipating being able to return home to have further outpatient rehabilitation by the first of this weekend. OBJECTIVE: Left knee dressing has been changed and is clean. She has fairly good range of motion and is able to bear weight. Lungs are clear. Heart tones are regular. Abdomen is soft. ASSESSMENT: 1. Postoperative day #8 left total knee arthroplasty performed by Dr. Hurtado. 2. History of chronic osteoarthritis failing outpatient therapy and requiring surgical intervention to assist with symptom control. 3. Hyperlipidemia. 4. Gastroesophageal reflux disease. 5. Hypertension. 7. Hypothyroidism on supplementation. 8. History of coronary artery disease. PLAN: The patient will continue on rehabilitation until the first of this weekend when she will be able to hopefully return when stable and when safe to do so for continued outpatient management. Reevaluation in the morning and discuss with therapist. #[id number] [facility]
[2017-06-20] MEDS: ATORVASTATIN 10 MG TAB PO SCH (21:25)
[2017-06-20] MEDS: FISH OIL 1,200 MG CAP PO SCH (21:25)
[2017-06-20] MEDS: ESTRADIOL TAB 1 MG PO SCH (21:25)
--- NOTE | 2017-06-20 21:28 | PN ---
DATE: 06/20/17 SUBJECTIVE: The patient is sitting up in the chair and is actually active, alert and cooperative. No shortness of breath or nausea. Slight edema evident in the left leg. Pain is significantly improved. OBJECTIVE: Afebrile, pulse 79, blood pressure 124/85, pulse oximetry 95% on room air. The dressing appears to be dry on the left knee and she has remarkably good range of motion. She is able to put weight on it with some pain , but it seems to be improving. Her confidence seems to be good. Heart and lung exams normal. ASSESSMENT: 1. Postoperative day #9 total left knee arthroplasty performed by Dr. Hurtado, orthopedic surgery. 2. Chronic osteoarthritis failing to respond to outpatient therapy and requiring surgical intervention to assist with symptom control. 3. Hyperlipidemia. 4. Gastroesophageal reflux disease. 5. Hypertension. 6. Hypothyroidism on supplementation. 7. History of coronary artery disease. PLAN: The patient will continue with Swing Bed rehabilitation hopefully for the next 2 days and be able to return home if making good progress on Saturday morning this weekend. She will then have continued outpatient management and followup. #[id number] [facility]
[2017-06-21] MEDS: TEMAZEPAM 15 MG CAP PO PRN (00:25)
[2017-06-21] MEDS: CYCLOBENZAPRINE HCL 10 MG TAB PO PRN ×2 (00:25→20:01)
[2017-06-21] MEDS: COENZYME Q10 100 MG PO SCH (06:36)
[2017-06-21] MEDS: LEVOTHYROXINE SODIUM 0.1 MG TAB PO SCH (06:36)
[2017-06-21] MEDS: RIVAROXABAN 10 MG TAB PO SCH (08:42)
[2017-06-21] MEDS: FLUTICASONE PROP 0.05% NASAL 16 GM BTTL BNAS SCH (08:42)
[2017-06-21] MEDS: DOCUSATE SODIUM 100 MG CAP PO SCH (08:42)
[2017-06-21] MEDS: CARVEDILOL 3.125 MG TAB PO SCH ×2 (08:42→20:45)
[2017-06-21] MEDS: LISINOPRIL 10 MG TAB PO SCH ×2 (08:42→20:45)
[2017-06-21] MEDS: HYDROcodone 10MG/APAP 325MG 1 EA TAB PO PRN (08:42)
[2017-06-21] MEDS: hydroCHLOROthiazide 12.5 MG CAP PO SCH (08:42)
[2017-06-21] MEDS: DICLOFENAC SODIUM 50 MG PO SCH ×2 (08:43→20:45)
[2017-06-21] MEDS: MAGNESIUM HYDROXIDE 30 ML UD PO PRN (08:52)
[2017-06-21] MEDS: FISH OIL 1,200 MG CAP PO SCH (20:45)
[2017-06-21] MEDS: ATORVASTATIN 10 MG TAB PO SCH (20:45)
[2017-06-21] MEDS: ESTRADIOL TAB 1 MG PO SCH (20:45)
[2017-06-22] MEDS: HYDROcodone 10MG/APAP 325MG 1 EA TAB PO PRN ×2 (00:21→10:20)
[2017-06-22] MEDS: TEMAZEPAM 15 MG CAP PO PRN (00:21)
[2017-06-22] MEDS: LEVOTHYROXINE SODIUM 0.1 MG TAB PO SCH (06:42)
[2017-06-22] MEDS: COENZYME Q10 100 MG PO SCH (06:42)
[2017-06-22] MEDS: FLUTICASONE PROP 0.05% NASAL 16 GM BTTL BNAS SCH (09:22)
[2017-06-22] MEDS: hydroCHLOROthiazide 12.5 MG CAP PO SCH (09:23)
[2017-06-22] MEDS: LISINOPRIL 10 MG TAB PO SCH (09:23)
[2017-06-22] MEDS: CARVEDILOL 3.125 MG TAB PO SCH (09:23)
[2017-06-22] MEDS: DOCUSATE SODIUM 100 MG CAP PO SCH (09:23)
[2017-06-22] MEDS: RIVAROXABAN 10 MG TAB PO SCH (09:23)
[2017-06-22] MEDS: DICLOFENAC SODIUM 50 MG PO SCH (09:25)
[2017-06-22 10:17] VITALS: BP 131/83; TEMP 96.7; O2SAT 97
--- NOTE | 2017-06-22 11:30 | PN ---
DATE: 06/21/17 SUBJECTIVE: Ms. Larson is doing very well. She has pain that is well controlled. OBJECTIVE: She is afebrile. Vital signs are stable. Wound is clean. There are no signs or symptoms of infection. ASSESSMENT: 1. Status post total knee arthroplasty. PLAN: She is going to be with us for 1 more day and will discharge her on 06/22. [facility][id number] [facility]
--- NOTE | 2017-06-22 11:50 | PN ---
DATE: 06/22/17 SUBJECTIVE: Ms. Larson is doing well. Her pain is well controlled. She is slated to go home today. OBJECTIVE: She is afebrile. Vital signs are stable. Wound is clean. There are no signs or symptoms of infection. ASSESSMENT: 1. Status post total knee arthroplasty. PLAN: The plan at this point is for her to be discharged. She will have physical therapy on an outpatient basis. She has an appointment to followup with me in 2 weeks. She has been instructed to return immediately should any change in her condition occur. #[id number] [facility]
--- NOTE | 2017-06-22 19:59 | DS ---
SUPERVISING PHYSICIAN: Sony Osullivan M.D. DISCHARGE DIAGNOSIS: 1. Postoperative day #11 total left knee arthroplasty performed by Dr. Hurtado, orthopedic surgeon. 2. Chronic osteoarthritis failing to respond to outpatient therapy and requiring surgical intervention to assist with symptom control. 3. Hyperlipidemia. 4. Gastroesophageal reflux disease. 5. Hypertension. 6. Hypothyroidism. 7. History of coronary artery disease. HISTORY OF PRESENT ILLNESS: This is a 71 year-old female patient who has a significant history of left knee pain. She attempted multiple conservative treatment measures in the outpatient setting but failed to gain any relief. On 06/11/17, Dr. James Hurtado, orthopedic surgeon, performed a left total knee arthroplasty and she was admitted to the hospital in the Acute Care setting. HOSPITAL COURSE: At the end of her Acute Care stay, she was evaluated by Physical Therapy and found that she would warrant Swing Bed admission to allow for adequate time to increase strength and conditioning so she could be safe once she was discharged home. The patient was discharged from the Acute Care setting on 06/14/17 and readmitted to Swing Bed. During her hospital stay, she continued with strengthening and conditioning per Physical Therapy. Her vital signs remained stable. At this point, she can be discharged home. DISCHARGE PLAN: The patient will be discharged home in stable condition. She is to followup with Dr. James Hurtado on 07/04/17. She will be followed by [facility]. She is to resume her previous diet and her activity will be as per Physical Therapy. She will be discharged on her regular home medications as well as some Hydrocodone, Xarelto for 1 more day and Cyclobenzaprine as well as some Temazepam. DISCHARGE MEDICATIONS: 1. Levothyroxine. 2. Carvedilol. 3. Lisinopril/Hydrochlorothiazide. 4. Krill oil. 5. Coenzyme Q-10. 6. Fluticasone nasal spray. 7. Estradiol. 8. Diclofenac. 9. Lipitor. 10. Cyclobenzaprine. 11. Xarelto. 12. Hydrocodone. Dr. Osullivan is the collaborating physician available for consultation. #[id number] [facility]
== END 2017-06-22 13:44 | disposition home health service (06) | DRG 561 ==
LOC: MS 13:13 → UNDOADMIN 13:13
PROVIDERS: ADMIT Nurse Practitioner Family; ATTEND Nurse Practitioner Acute Care
DX: Z47.1 Aftercare following joint replacement surgery (principal); K21.9 Gastro-esophageal reflux disease without esophagitis; I10 Essential (primary) hypertension; E03.9 Hypothyroidism, unspecified; I25.10 Atherosclerotic heart disease of native coronary artery without angina pectoris; J30.2 Other seasonal allergic rhinitis; E78.2 Mixed hyperlipidemia; K57.90 Diverticulosis of intestine, part unspecified, without perforation or abscess without bleeding; K27.9 Peptic ulcer, site unspecified, unspecified as acute or chronic, without hemorrhage or perforation; Z96.652 Presence of left artificial knee joint; Z95.1 Presence of aortocoronary bypass graft; Z79.01 Long term (current) use of anticoagulants; Z88.6 Allergy status to analgesic agent; Z88.8 Allergy status to other drugs, medicaments and biological substances; Z87.891 Personal history of nicotine dependence

== ENCOUNTER → 2017-12-16 | Outpatient (CLI) | payer MEDICARE | LOC: GMAJ 12:11 | PROVIDERS: ATTEND Family Medicine | DX: E03.9 Hypothyroidism, unspecified (principal) ==

== ENCOUNTER → 2017-12-23 | Outpatient (CLI) | payer MEDICARE ==
--- NOTE | 2017-12-23 08:33 | CT ---
EXAM DESCRIPTION: Chest w/Contrast CLINICAL HISTORY: 72 years, Female, CHRONIC COUGH COMPARISON: Chest x-ray May 23, 2017 TECHNIQUE: Thin-section noncontrast axial CT images are obtained according to our protocol. Reconstructed MPR images are created and reviewed as well. FINDINGS: Lungs: No consolidating pulmonary infiltrate or groundglass infiltrate. No worrisome pulmonary mass or nodule. Small intrapulmonary lymph node is seen along the right major fissure. Small triangular subpleural scar is seen in the posterior right apex. Minimal subpleural scarring in the anterior left upper lobe and posterior left lower lobe. Mediastinum: Lymph nodes are normal in size. Normal enhancement of pulmonary vessels, aorta and cardiac chambers. Heart size is normal with no pericardial effusion. Clips are seen anterior to the heart and median sternotomy wires are present. There is extensive coronary arterial calcification. Chest wall/axilla: No lower cervical or axillary mass or adenopathy. Breast tissue appears symmetrical. In the lower anterior chest wall below the xiphoid, central lucency with peripheral undulating high density margin is seen around unusual structure which could be herniorrhaphy mesh. Collapsing hematoma, seroma or healing abscess might be considered. Clinical correlation recommended. Lower neck/supraclavicular: No mass or adenopathy. Upper abdomen: Unremarkable upper abdominal viscera. Gallbladder surgically absent. Coronal and sagittal reformatted images confirm the findings. IMPRESSION: No consolidating infiltrate. No acute process in the chest. Sternotomy wires with surgical clips in the chest and probable herniorrhaphy mesh in the anterior lower chest/upper abdominal wall below the xiphoid. This exam was performed according to our departmental dose-optimization program, which includes automated exposure control, adjustment of the mA and/or kV according to patient size and/or use of iterative reconstruction technique. Total DLP equals 626.52 mGycm. Electronically signed by: Skyler Covarrubias MD 12/23/2017 8:31 AM CDT
== END ==
LOC: CT 08:00
PROVIDERS: ATTEND Family Medicine
DX: R05 Cough (principal)

== ENCOUNTER → 2018-01-28 | Outpatient (CLI) | payer MEDICARE | LOC: GMAJ 11:23 | PROVIDERS: ATTEND Family Medicine | DX: E03.9 Hypothyroidism, unspecified (principal) ==

== ENCOUNTER 2018-06-23 05:33 | Day surgery (SDC) | payer MEDICARE ==
[2018-06-23] MEDS ORDERED: PROPARACAINE 0.5% OPHTH SOL 15 ML BTTL ONE (06:00)
[2018-06-23] MEDS ORDERED: TROP 1%/CYCLOPEN 1%/PHENYL 2% DROPS ONE (06:00)
[2018-06-23] MEDS ORDERED: MIDAZOLAM INJ 2 MG/2 ML VIAL ONE (07:06)
[2018-06-23] MEDS ORDERED: LIDOCAINE 1% MPF 5 ML VIAL INJ ONE (09:26)
[2018-06-23] MEDS ORDERED: BRIMONIDINE 0.2% OPHTH DROPS LEFT_EYE ONE ×2 (09:29→09:41)
[2018-06-23] MEDS ORDERED: TOBRAMYCIN SULF 0.3 % OPHT SOL 1 DROP LEFT_EYE ONE ×2 (09:29→09:41)
[2018-06-23] MEDS ORDERED: DEXAMETHASONE 0.1% OPHTH SOL 1 DROP LEFT_EYE ONE ×2 (09:29→09:41)
== END 2018-06-23 10:25 | disposition home or self-care (01) ==
LOC: AMB 05:33
PROVIDERS: ATTEND Ophthalmology
DX: H26.9 Unspecified cataract (principal); I10 Essential (primary) hypertension; I25.10 Atherosclerotic heart disease of native coronary artery without angina pectoris; I25.2 Old myocardial infarction; K21.9 Gastro-esophageal reflux disease without esophagitis; E66.9 Obesity, unspecified; J44.9 Chronic obstructive pulmonary disease, unspecified; Z88.6 Allergy status to analgesic agent; Z88.8 Allergy status to other drugs, medicaments and biological substances; Z95.1 Presence of aortocoronary bypass graft; Z87.891 Personal history of nicotine dependence; Z79.899 Other long term (current) drug therapy
CPT/HCPCS: 00142; 66984; J2250

== ENCOUNTER → 2018-07-11 | Outpatient (CLI) | payer MEDICARE | LOC: GMAJ 10:56 | PROVIDERS: ATTEND Family Medicine | DX: E03.9 Hypothyroidism, unspecified (principal) ==

== ENCOUNTER 2018-07-21 05:36 | Day surgery (SDC) | payer MEDICARE ==
[2018-07-21] MEDS ORDERED: TROP 1%/CYCLOPEN 1%/PHENYL 2% DROPS ONE (05:50)
[2018-07-21] MEDS ORDERED: PROPARACAINE 0.5% OPHTH SOL 15 ML BTTL ONE (05:50)
[2018-07-21] MEDS ORDERED: MIDAZOLAM INJ 2 MG/2 ML VIAL ONE (06:43)
[2018-07-21] MEDS ORDERED: PROPARACAINE 0.5% OPHTH SOL 15 ML BTTL RIGHT_EYE ONE (09:00)
[2018-07-21] MEDS ORDERED: LIDOCAINE 1% 2 ML VIAL INJ ONE ×2 (09:06→09:14)
[2018-07-21] MEDS ORDERED: TOBRAMYCIN SULF 0.3 % OPHT SOL 1 DROP RIGHT_EYE ONE ×2 (09:06→09:27)
[2018-07-21] MEDS ORDERED: DEXAMETHASONE 0.1% OPHTH SOL 1 DROP RIGHT_EYE ONE ×2 (09:06→09:27)
[2018-07-21] MEDS ORDERED: BRIMONIDINE 0.2% OPHTH DROPS RIGHT_EYE ONE ×2 (09:07→09:27)
== END 2018-07-21 10:05 | disposition home or self-care (01) ==
LOC: AMB 05:36
PROVIDERS: ATTEND Ophthalmology
DX: H25.9 Unspecified age-related cataract (principal); I10 Essential (primary) hypertension; I25.10 Atherosclerotic heart disease of native coronary artery without angina pectoris; E66.9 Obesity, unspecified; Z87.891 Personal history of nicotine dependence; Z88.8 Allergy status to other drugs, medicaments and biological substances; Z79.899 Other long term (current) drug therapy
CPT/HCPCS: 00142; 66984; J2250

== ENCOUNTER 2018-07-23 14:52 | Emergency (ER) | payer MEDICARE ==
--- NOTE | 2018-07-23 15:23 | RAD ---
EXAM DESCRIPTION: Chest,1 View CLINICAL HISTORY: chest pain COMPARISON: None available FINDINGS: Postoperative changes are noted in the mediastinum. The cardiomediastinal silhouette is unremarkable. There is no airspace consolidation or pleural effusion. The bronchovascular markings are within normal limits, and the lungs are not hyperinflated. There is no pneumothorax or acute fracture. There are degenerative changes in the right AC joint with probable chronic right-sided rotator cuff tear. IMPRESSION: Postoperative changes in the mediastinum without acute intrathoracic abnormality. Degenerative changes in the right shoulder including probable chronic right-sided rotator cuff tear. Electronically signed by: Samir Harper MD 07/23/2018 3:22 PM [facility]
[2018-07-23 15:28] VITALS: TEMP 98.8
--- NOTE | 2018-07-23 15:59 | ED.PDOC ---
History of Present Illness - General Chief Complaint: Cardiovascular Problem Stated Complaint: chest pain Time Seen by Provider: 07/23/18 15:07 Source: patient, family Exam Limitations: no limitations - History of Present Illness Initial Comments: Patient is a 73 yo s/p 5 vessel CABG in 2012 who presents with chest discomfort for about 8 hours. She said it started as a burning sensation just to the left of her sternum and went to her back. It has since improved to where she can barely feel it. She has had a history of gastritis/GERD due to arthritis medications. There are no exacerbating nor alleviating factors. No previous episodes. She says that she has never actually had an AMI. No other symptoms or complaints. Timing/Duration: other - 8 hours Severity: mild Improving Factors: nothing Worsening Factors: nothing Associated Symptoms: denies symptoms Allergies/Adverse Reactions: Allergies Hydroxychloroquine [From Plaquenil] Allergy (Verified 07/23/18 15:28) Methotrexate Allergy (Verified 07/23/18 15:28) Naproxen [From Naprosyn] Allergy (Verified 07/23/18 15:28) NSAIDs Allergy (Verified 07/23/18 15:28) Pravastatin [From Pravachol] Allergy (Verified 07/23/18 15:28) Home Medications: Ambulatory Orders Carvedilol [Coreg] 3.125 mg PO BID 06/14/14 Levothyroxine Sodium [Levoxyl] 100 mcg PO DAILY@0700 06/14/14 Coenzyme Q10 (Ubidecarenone) [Coq-10 100 mg] 100 mg PO DAILY@0700 11/19/14 Krill Oil [[place]-3 Krill Oil 300 mg] 1 cap PO BEDTIME 11/19/14 Lisinopril & Hydrochlorothiazi [Lisinopril/Hctz 20-12.5 mg] 0.5 tab PO BID 11/19 Atorvastatin Calcium [Lipitor] 10 mg PO BEDTIME 06/10/17 Diclofenac Sodium [Diclofenac Sodium Dr] 50 mg PO BID 06/10/17 Estradiol [Estrace] 0.5 mg PO BEDTIME 06/10/17 Fluticasone Propionate (Nasal) [Fluticasone Propionate] 50 mcg NA DAILY Cyclobenzaprine HCl [Flexeril] 10 mg PO Q8H PRN tab 06/14/17 HYDROcodone 5MG/APAP 325MG [[place] 5/325] 1 ea PO Q4H PRN tab 06/14/17 Rivaroxaban [Xarelto] 10 mg PO QD 8 Days tab 06/14/17 Cyclobenzaprine HCl [Flexeril] 10 mg PO TID PRN #20 tab 06/22/17 HYDROcodone 10MG/APAP 325MG [[place] 10/325] 1 ea PO Q4H PRN tab 06/22/17 Rivaroxaban [Xarelto] 10 mg PO DAILY #1 tab 06/22/17 Temazepam [Restoril] 15 - 30 mg PO BEDTIME PRN #15 cap 06/22/17 Review of Systems - Review of Systems Constitutional: States: no symptoms reported EENTM: States: no symptoms reported Respiratory: States: no symptoms reported Cardiology: States: see HPI Gastrointestinal/Abdominal: States: see HPI Genitourinary: States: no symptoms reported Musculoskeletal: States: no symptoms reported Skin: States: no symptoms reported Neurological: States: no symptoms reported Endocrine: States: no symptoms reported Hematologic/Lymphatic: States: no symptoms reported Past Medical History (General) - Patient Medical History Hx Seizures: No Hx Stroke: No Hx Asthma: No Hx of COPD: No Hx Cardiac Disorders: Yes Hx Congestive Heart Failure: No Hx Pacemaker: No Hx Hypertension: Yes Hx Thyroid Disease: Yes Hx Diabetes: No Hx MRSA: No Surgical History: cholecystectomy, Hysterectomy - Vaccination History Hx Influenza Vaccination: Yes Hx Pneumococcal Vaccination: Yes - Social History Hx Tobacco Use: No Hx Alcohol Use: No Hx Substance Use: No Hx Substance Use Treatment: No Hx Depression: No Hx Physical Abuse: No Hx Emotional Abuse: No - Female History Patient : No Family Medical History - Family History Mother Family History: Unknown Living Status: Hx Family Hypertension: Yes Hx Family Diabetes: Yes Daughter Living Status: Still Living Hx Family Diabetes: Yes Father Living Status: Hx Family Hypertension: Yes Hx Family;Other: RA Physical Exam - Physical Exam General Appearance: Alert Eye Exam: bilateral normal Ears, Nose, Throat: normal ENT inspection Neck: non-tender, full range of motion, supple Respiratory: chest non-tender, lungs clear, normal breath sounds Cardiovascular/Chest: normal peripheral pulses, regular rate, rhythm, no edema Gastrointestinal/Abdominal: normal bowel sounds, non tender, soft Back Exam: normal inspection, no CVA tenderness Extremity: normal range of motion, non-tender, normal inspection Neurologic: no motor/sensory deficits, alert, normal mood/affect, oriented x 3 Skin Exam: normal color Lymphatic: no adenopathy Progress - Progress Progress: 07/23/18 17:48 Laboratory Tests 07/23/18 07/23/18 07/23/18 15:05 15:05 15:05 WBC 7.0 RBC 4.51 Hgb 14.0 Hct 41.7 MCV 92.4 MCH 31.0 MCHC 33.5 RDW 13.8 Plt Count 285 MPV 8.8 Absolute Neuts (auto) 3.40 Absolute Lymphs (auto) 2.80 Absolute Monos (auto) 0.60 Absolute Eos (auto) 0.10 Absolute Basos (auto) 0.00 Neutrophils % 48.1 Lymphocytes % 40.3 Monocytes % 9.0 Eosinophils % 2.1 Basophils % 0.5 PT INR PTT (SP) Sodium 133 L Potassium 4.1 Chloride 96 L Carbon Dioxide 27 Anion Gap 14.1 BUN 23 H Creatinine 1.08 BUN/Creatinine Ratio 21.3 H Random Glucose 112 H Serum Osmolality 270.8 L Calcium 9.7 Magnesium 2.0 Total Bilirubin 0.2 AST 42 ALT 32 Alkaline Phosphatase 59 Creatine Kinase 122 CK-MB (CK-2) 1.9 CK-MB (CK-2) % Not Reportable Troponin I 0.03 B-Natriuretic Peptide 23.0 Serum Total Protein 8.2 Albumin 4.3 Globulin 3.9 H Albumin/Globulin Ratio 1.1 07/23/18 15:05 WBC RBC Hgb Hct MCV MCH MCHC RDW Plt Count MPV Absolute Neuts (auto) Absolute Lymphs (auto) Absolute Monos (auto) Absolute Eos (auto) Absolute Basos (auto) Neutrophils % Lymphocytes % Monocytes % Eosinophils % Basophils % PT 10.0 INR 1.00 PTT (SP) 24.7 Sodium Potassium Chloride Carbon Dioxide Anion Gap BUN Creatinine BUN/Creatinine Ratio Random Glucose Serum Osmolality Calcium Magnesium Total Bilirubin AST ALT Alkaline Phosphatase Creatine Kinase CK-MB (CK-2) CK-MB (CK-2) % Troponin I B-Natriuretic Peptide Serum Total Protein Albumin Globulin Albumin/Globulin Ratio Troponin negative. EKG showed NSR with no ST changes nor T wave inversions. CXR wnl. Patient had already had ASA x two today. Her symptoms resolved in the E.R. She was given a GI cocktail. Care instructions given. E.R. warnings given. Questions were elicited and answered. The patient voiced understanding and agreement with the plan. Departure - Departure Clinical Impression: Chest pain Disposition: Discharge to Home or Self Care Condition: Good Departure Forms: ED Discharge - Pt. Copy, Patient Portal Self Enrollment Instructions: DI for Chest Pain Diet: other - as per your regular doctor Activity: increase activity as tolerated Referrals: Sony Osullivan MD [Primary Care Provider] - 1-2 Weeks Home Medications: Ambulatory Orders Carvedilol [Coreg] 3.125 mg PO BID 06/14/14 Levothyroxine Sodium [Levoxyl] 100 mcg PO DAILY@0700 06/14/14 Coenzyme Q10 (Ubidecarenone) [Coq-10 100 mg] 100 mg PO DAILY@0700 11/19/14 Krill Oil [[place]-3 Krill Oil 300 mg] 1 cap PO BEDTIME 11/19/14 Lisinopril & Hydrochlorothiazi [Lisinopril/Hctz 20-12.5 mg] 0.5 tab PO BID 11/19 Atorvastatin Calcium [Lipitor] 10 mg PO BEDTIME 06/10/17 Diclofenac Sodium [Diclofenac Sodium Dr] 50 mg PO BID 06/10/17 Estradiol [Estrace] 0.5 mg PO BEDTIME 06/10/17 Fluticasone Propionate (Nasal) [Fluticasone Propionate] 50 mcg NA DAILY Cyclobenzaprine HCl [Flexeril] 10 mg PO Q8H PRN tab 06/14/17 HYDROcodone 5MG/APAP 325MG [[place] 5/325] 1 ea PO Q4H PRN tab 06/14/17 Rivaroxaban [Xarelto] 10 mg PO QD 8 Days tab 06/14/17 Cyclobenzaprine HCl [Flexeril] 10 mg PO TID PRN #20 tab 06/22/17 HYDROcodone 10MG/APAP 325MG [[place] 10/325] 1 ea PO Q4H PRN tab 06/22/17 Rivaroxaban [Xarelto] 10 mg PO DAILY #1 tab 06/22/17 Temazepam [Restoril] 15 - 30 mg PO BEDTIME PRN #15 cap 06/22/17 Additional Instructions: Return to the E.R. if chest pain recurs. See your regular doctor next week to adjust your blood pressure medications and possibly to further evaluate your heart.
[2018-07-23] MEDS ORDERED: ALUM & MAG HYDROX-SIMETHICONE 30 ML, LIDOCAINE VISCOUS 2% 15 ML PO ONE ×2 (16:38)
[2018-07-23] MEDS ORDERED: LIDOCAINE HCL 2% (MOUTH-THROAT) 15 ML UD ONE (17:23)
[2018-07-23] MEDS ORDERED: ALUM & MAG HYDROX-SIMETHICONE 30 ML UD ONE (17:23)
[2018-07-23 18:43] VITALS: BP 118/84; O2SAT 97
== END 2018-07-23 18:25 | disposition home or self-care (01) ==
LOC: ER 14:52
DX: R07.89 Other chest pain (principal); I51.9 Heart disease, unspecified; I10 Essential (primary) hypertension; E07.9 Disorder of thyroid, unspecified; Z90.49 Acquired absence of other specified parts of digestive tract; Z95.1 Presence of aortocoronary bypass graft; Z79.899 Other long term (current) drug therapy; Z88.8 Allergy status to other drugs, medicaments and biological substances; Z88.6 Allergy status to analgesic agent

== ENCOUNTER → 2019-01-07 | Outpatient (CLI) | payer MEDICARE ==
--- NOTE | 2019-01-08 09:56 | US ---
US THYROID CLINICAL STATEMENT: THYROID NODULE. Previous thyroid disease. "Taking thyroid medications for years." COMPARISON: None TECHNIQUE: Transcutaneous scanning, grayscale and Doppler modes. FINDINGS: Size right thyroid lobe: 3.2 x 1.4 x 1.1 cm Size left thyroid lobe: 2.5 x 1.0 x 0.9 cm Size isthmus: 0.23 cm Estimated total number of nodules greater than or equal to 1 cm: None.Heterogeneous echoes bilaterally. Nodule 1: Size: 0.7 x 0.6 x 0.5 cm Location: Isthmus Lower Composition: solid or almost completely solid: 2 points Echogenicity: hypoechoic: 2 points Shape: wider than tall: 0 points Margins: smooth: 0 points Echogenic foci: none: 0 points ACR Total Points: 4; ACR TI-RADS risk category: TR4 - moderately suspicious nodule. Soft tissue around the thyroid gland shows no evidence of discrete cyst or solid mass. No parenchymal edema or large calcifications. No overlying skin changes. Normal vascularity. IMPRESSION: 1. Nodule 1: ACR TI-RADS 2017 Category TR4. Recommend: No further follow-up.. Recommendations based upon [employer] Best Practice recommendations and ACR TI-RADS 2017 guidelines. Please see below*. 2. Soft tissue around the thyroid gland is unremarkable. *ACR TI-RADS 2017 Recommendations: TR1: No FNA or follow up TR2: No FNA or follow up TR3: FNA if >/= 2.5 cm, follow up if 1.5 - 2.4 cm in 1, 3, and 5 years TR4: FNA if >/= 1.5 cm, follow up if 1.0 - 1.4 cm in 1, 2, 3, and 5 years TR5: FNA if >/= 1.0 cm, follow up if 0.5 - 0.9 cm every year for 5 years ACR TI-RADS recommends that no more than two nodules with the highest ACR TI-RADS total point should be biopsied and no more than four nodules should be followed. These recommendations do not apply to patients with increased risk for thyroid cancer or patients with symptomatic thyroid disease. Electronically signed by: Fede Busby MD 01/08/2019 9:54 AM CDT
== END ==
LOC: US 15:30
PROVIDERS: ATTEND Family Medicine
DX: E04.2 Nontoxic multinodular goiter (principal)

== ENCOUNTER → 2019-06-08 | Outpatient (CLI) | payer MEDICARE | LOC: GMAJ 11:26 | PROVIDERS: ATTEND Family Medicine | DX: E03.9 Hypothyroidism, unspecified (principal); I10 Essential (primary) hypertension ==